=== PATIENT | female | born 1970 | race Caucasian/White ===

== ENCOUNTER 2023-11-29 11:14 | Emergency (ER) | payer OTHER, SELFPAY ==
[2023-11-29 11:19] VITALS: BP 156/97
[2023-11-29 11:35] VITALS: BMI 22.1
--- NOTE | 2023-11-29 11:45 | ED.SKININJ ---
HPI-Injury
General
Chief Complaint: Skin Surface Trauma
Source: patient
Time Seen by Provider: 11/29/23 11:36
History of Present Illness-Injury
Initial Injury comments:
53yo left hand dominant female presenting for evaluation of an embedded staple in the right little finger. Patient was volunteering at the local school and was using a staple gun when she accidentally stapled her R pinky about 1 hour ago. No other
complaints. Unknown last Tdap.
Past History
Past History
ED Past Medical History: None
Social History
Tobacco: Non-smoker
Alcohol: None
Family History
Family History: Negative Diabetes, Hypertension or CAD
Phy Exam
General Physical Exam
General Presentation: well appearing and no apparent distress
General age: appears stated age
General Skin: warm and dry
General Habitus: normal
General Mental: alert
ENT Exam
ENT Exam: normocephalic
Pulmonary Exam
Pulmonary Exam: no respiratory distress
Jaron Coma Scale
Eye Opening: Spontaneous
Verbal Response: Oriented
Motor Response: Obeys Commands
GCS Total Score: 15
Skin Exam
Skin Exam: normal color, warm/dry and other (Staple embedded into palmar aspect of R little finger)
Psychiatric Exam
Psychiatric Exam: normal mood/affect
Course
Orders/Labs/Results
Orders:
Orders
11/29/23 11:44
Tetanus/Diphth/Acelpertussis [Adacel] 0.5 ml IM .ONCE ONE
11/29/23 11:58
Thumb/Finger 2 View Rt [CR Finger(s)/thumb Min 2 Vw Rt] Urgent
Comment:
Reason For Exam: Staple removed from R little finger
Vital Signs
Initial and Last Documented VS:
Initial Vital Signs
Temp Pulse Resp BP Pulse Ox
98.0 F 65 18 156/97 99
11/29/23 11:19 11/29/23 11:19 11/29/23 11:19 11/29/23 11:19 11/29/23 11:19
Last Documented Vital Signs
Temp Pulse Resp BP Pulse Ox
98.0 F 65 18 156/97 99
11/29/23 11:19 11/29/23 11:19 11/29/23 11:19 11/29/23 11:19 11/29/23 11:19
Procedures
Foreign Body Removal-Skin
Wound explored and foreign body removed?: Yes
Foreign body removed: completely (Staple removed using staple remover)
MDM/Problems Addressed
Differential Diagnosis Includes:
53yoF here with a skin foreign body. Accidentally stapled her R little finger. Embedded staple on exam. Differential diagnosis includes but is not limited to: skin FB, fracture, tendon injury
The staple was removed with a staple remover. No bony tenderness noted after removal. ROM of DIP, PIP, and MCP joint intact. Sensation and cap refill intact at distal fingertip. X-rays obtained which are normal. Tdap updated. Patient discharged in
stable condition. She was advised to return to the ED with any signs of infection.
*Critical Care Note
Total Time (30-74mins, 75-104mins- exclusive of procedures): Not Applicable
ED Attending Note
-
Portions of this chart may have been created with voice recognition software.� Occasional wrong word or��sound alike� substitutions may have occurred due to the inherent limitations of voice recognition software.
Discharge Plan
Departure
Patient Disposition: Home (Routine Discharge)
Date of Disposition: 11/29/23
Time of Disposition: 12:20
Patient with high blood pressure during this ER visit?: Yes
Discharge Problem:
Foreign body of finger
Instructions: Foreign Body in Skin (DC)
Prescriptions:
No Action
Vitamins
hydrocodone-acetaminophen 5 MG/500 MG tablet
1 tab PO Q4HPRN PRN (Reason: PAIN) Qty: 20 0RF
Referrals:
NONE,* [Family Provider] -
Activity Restrictions/Additional Instructions:
Apply ice to affected area. Take Tylenol and ibuprofen as needed for pain.
Return to the ER with any signs of infection (redness, warmth, drainage).
Interventions
Interventions:
*Risk Screen - Suicide Last Done: 11/29/23 11:19
*General Assessment Last Done: 11/29/23 11:19
*Neglect/Abuse Screening Last Done: 11/29/23 11:19
*ED COVID-19 Vaccine History Last Done: 11/29/23 11:19
*Nursing Disposition Last Done: 11/29/23 12:34
ED-Skin Assessment Last Done: 11/29/23 11:35
Discharge Date and Time
Discharge Date/Time: 11/29/23 12:35
Print Language: WELSH
[2023-11-29] MEDS: ADACEL 0.5 ML IM (11:50)
== END 2023-11-29 12:35 | disposition home or self-care (01) ==
LOC: EMR 11:14
PROVIDERS: EMERGENCY PHYSICIAN Emergency Medicine
DX: S61.246A Puncture wound with foreign body of right little finger without damage to nail, initial encounter (principal); W45.8XXA Other foreign body or object entering through skin, initial encounter; Z23 Encounter for immunization
CPT/HCPCS: 99283; 90471; 73140; 90715

== ENCOUNTER → 2023-12-20 11:37 | Outpatient (REF) | payer OTHER, SELFPAY | LOC: HWWDC 11:37 | PROVIDERS: ATTENDING PHYSICIAN Obstetrics & Gynecology | DX: Z12.31 Encounter for screening mammogram for malignant neoplasm of breast (principal) | CPT/HCPCS: 77063; 77067 ==